=== PATIENT | female | born 1985 | race Caucasian/White ===

== ENCOUNTER 2019-08-29 11:41 | Emergency (ER) | payer SELFPAY ==
--- NOTE | 2019-08-29 13:13 | UC ---
Nausea/Vomiting/Diarrhea HPI - HPI Summary HPI Summary: Patient is a 33yo female A0 presenting with for nausea and vomiting x1 week. Patient states she is "around 7 weeks ." Patient unsure, as she does not have an OBGYN or primary care provider. Patient states vomiting approximately "3x daily or whenever she attempts to eat anything." Bola being able to keep down anything solid. States able to drink a little bit of water daily. Notes epigastric and LLQ pain x1 week with vomiting. Denies lower abd cramping and vaginal bleeding. Denies diarrhea. Denies fever and chills. Notes fatigue and lightheadedness. States this has happened with most of her pregnancies. - History of Current Complaint Chief Complaint: UCGI Stated Complaint: NAUSEA AND VOMITING/6 WEEKS PREG Hx Obtained From: Patient, Family/Sports Nutritionist - Hx Last Menstrual Period: [id number] Pain Intensity: 0 - Allergies/Home Medications Allergies/Adverse Reactions: Allergies Allergy/AdvReac Type Severity Reaction Status Date / Time No Known Allergies Allergy Verified 08/29/19 12:38 Home Medications: Home Medications Vit37/Iron/Folic Acid [Prenata] 1 chw PO DAILY 08/29/19 [History Confirmed 08/29/19] PMH/Surg Hx/FS Hx/Imm Hx - Surgical History Surgical History: None - Family History Known Family History: Positive: Non-Contributory - Social History Alcohol Use: None Substance Use Type: None Smoking Status (MU): Never Smoked Tobacco Review of Systems All Other Systems Reviewed And Are Negative: Yes Constitutional: Positive: Fatigue. Negative: Fever, Chills ENT: Positive: Negative Respiratory: Positive: Negative Cardiovascular: Positive: Negative Gastrointestinal: Positive: Abdominal Pain - epigastric/LLQ pain, Vomiting, Nausea. Negative: Diarrhea Genitourinary: Positive: Negative Musculoskeletal: Positive: Negative Neurological: Positive: Negative Physical Exam - Summary Physical Exam Summary: Vital Signs Reviewed: Yes A+Ox3, no distress Eyes: Conjunctiva Clear ENT: Hearing grossly normal Neck: Positive: Supple Respiratory: Positive: No respiratory distress, No accessory muscle use + CTA throughout no w/r Cardiovascular: RRR nl s1, s2 no m/r Abd: soft, + BS, +TTP of epigastric region and LLQ, no guarding, no distension Musculoskeletal Exam: VALLADARES x 4 without difficulty Neurological: Positive: Alert Psychological: Positive: age appropriate behavior Skin: Positive: no rash, no ecchymosis Vital Signs: Initial Vital Signs Temp 99.6 F 08/29/19 12:34 Pulse 78 08/29/19 12:34 Resp 16 08/29/19 12:34 BP 124/78 08/29/19 12:34 Pulse Ox 100 08/29/19 12:34 Diagnostics - Radiology transvaginal Radiology Interpretation Completed By: Radiologist Summary of Radiographic Findings: GESTATION: There is a single live intrauterine gestation. The pole measures 21.2 mm for a gestational age of 8 weeks and 6 days. The ALDAIR is April 01, 2020. This is concordant with age by dates.. cardiac motion is detected at a rate of 172 beats per minute. Gross movement is identified. anatomy cannot be assessed secondary to early dates. The amniotic fluid is qualitatively normal. There are no retroplacental fluid collections. Naus/Vom/Diarrhea Course/Dx - Course Course Of Treatment: Patient presenting with for n/v x1 week stating ~7weeks . Patient UA positive for 1+protein, 3+ketones, 1+bili, and positive. Patient received 1L NS and zofran IV. Patient states feeling better and able to eat crackers and water "but would love pizza right now." States nausea and pain have resolved. Transvaginal US revealed single live intrauterine gestation with heart beat and movement. Discussed findings with patient and . Provided patient with zofran prescription and educated on staying hydrated and eat small bland meals. Patient and states they would like OBGYN referral when offered, "in case her nausea and vomiting persist." I provided with referral to OBGYN and encouraged to follow up for duration of as well. Also instructed patient to go to emergency room with any new or worsening symptoms. Patient voiced understanding and agreed with treatment plan. Discussed patient with Dr. Mclain as well who agreed with treatment plan. - Differential Dx/Diagnosis Provider Diagnosis: , Hyperemesis gravidarum Condition At Discharge: Stable Discharge ED - Sign-Out/Discharge Documenting (check all that apply): Patient Departure All imaging exams completed and their final reports reviewed: Yes - Discharge Plan Condition: Stable Disposition: HOME Prescriptions: Ondansetron TAB* [Zofran 4 MG Tab*] 4 mg PO Q6H PRN #16 tab PRN Reason: Nausea/Vomiting Patient Education Materials: (ED), Hyperemesis Gravidarum (ED) Referrals: Madonna Shen MD [Medical Doctor] - Additional Instructions: Your ultrasound showed that you are approximately 8 weeks and 6 days with a due date around 2019. Be sure to maintain hydration by drinking small amounts of water frequently throughout the day. Eat small meals or snacks every 1-2 hours. It is recommended that you eat bland foods that are easy to digest, such as toast, apples, and bananas. You may take zofran as prescribed for nausea. It is recommended that you follow up with the OB referral listed below for follow up if nausea and vomiting persist and for continued follow up throughout . Go to the emergency room if you experience new or worsening symptoms, including excessive vomiting, dizziness, inability to keep fluids down, fever, vaginal bleeding, or severe abdominal pain. - Billing Disposition and Condition Condition: STABLE Disposition: Home
[2019-08-29] MEDS ORDERED: Ondansetron INJ* 2 MG/ML VIAL IV ONE (13:38)
[2019-08-29] MEDS ORDERED: NS 0.9% 1000 ML** 1,000 ML IV ONE (13:38)
[2019-08-29 16:23] VITALS: BP 113/62
== END 2019-08-29 16:10 | disposition home or self-care (01) ==
LOC: UCEAST 11:41
DX: O21.0 Mild hyperemesis gravidarum (principal); Z3A.01 Less than 8 weeks gestation of pregnancy
CPT/HCPCS: 76817; 81003; 84702; 96360; 96374; 99202; G0463; J2405